=== PATIENT | female | born 1985 | race Caucasian/White ===

== ENCOUNTER 2017-10-22 18:42 | Emergency (ER) | payer SELFPAY ==
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
[2017-10-22 21:21] VITALS: BP 118/69
== END 2017-10-22 21:20 | disposition home or self-care (01) ==
LOC: ED 18:42
DX: S09.90XA Unspecified injury of head, initial encounter (principal); M54.2 Cervicalgia; V43.52XA Car driver injured in collision with other type car in traffic accident, initial encounter; Y92.9 Unspecified place or not applicable
CPT/HCPCS: 72020; 72050; 99283